=== PATIENT | female | born 1955 | race Caucasian/White ===

== ENCOUNTER 2018-06-10 08:57 | Day surgery (SDC) | payer BC ==
[2018-06-09 11:46] VITALS: BMI 22.6
[2018-06-10] MEDS ORDERED: CEFAZOLIN 1 GM in DEXTROSE 5%-WATER - 100 ML IVPB ONE (09:28)
[2018-06-10] MEDS ORDERED: VASOPRESSIN 20 UNITS/ML VIAL IV ONE (09:28)
[2018-06-10] MEDS ORDERED: PHENAZOPYRIDINE HCL 100 MG TABLET (FP) PO ONE (09:28)
[2018-06-10] MEDS ORDERED: CEFAZOLIN 1 GM/D5W 1 GM/50 ML BAG ONE (09:30)
[2018-06-10] MEDS ORDERED: SEVOFLURANE 250 ML BTL ONE (10:37)
[2018-06-10] MEDS ORDERED: DESFLURANE GAS 240 ML BOTTLE IH ONE (10:37)
[2018-06-10] MEDS ORDERED: PROPOFOL 20 ML ONE (10:43)
[2018-06-10] MEDS ORDERED: ceFAZolin SODIUM 1 GM VIAL IVPB ONE (11:04)
[2018-06-10] MEDS ORDERED: FLUORESCEIN SODIUM 10% 500 MG/5 ML VIAL IVPUSH ONE (11:15)
[2018-06-10] MEDS ORDERED: KETOROLAC TROMETHAMINE 30 MG/1 ML VIAL ONE (11:25)
[2018-06-10] MEDS ORDERED: DEXAMETHASONE SOD PHOSPHATE 4 MG/1 ML VIAL ONE (11:25)
[2018-06-10] MEDS ORDERED: LIDOCAINE HCL 1%, 10 MG/ML (20ML VIAL) ONE (11:45)
[2018-06-10] MEDS ORDERED: ALBUTEROL SO4 8 GM HFA INHALER IH ONE (12:08)
[2018-06-10] MEDS ORDERED: ONDANSETRON 4 MG/2 ML VIAL IVPUSH PRN (12:22)
[2018-06-10] MEDS ORDERED: oxyCODONE HCL 5 MG TABLET PO PRN (12:22)
[2018-06-10] MEDS ORDERED: PROMETHAZINE HCL 25 MG/1 ML VIAL IVPB PRN (12:22)
[2018-06-10] MEDS ORDERED: ACETAMINOPHEN 1000 MG/100 ML VIAL (NON FORMULARY) IVPB ONE (12:23)
--- NOTE | 2018-06-10 12:24 | OP ---
Operative Note - Note: Operative Date: 06/10/18 Pre-Operative Diagnosis: UTERINE PROLAPSE Operation: TRANSVAGINAL HYSTERECTOMY, BILATERAL SALPINGECTOMY, REPAIR OF ENTEROCELE Surgeon: Jung Gonzalez Scada Operator: Colleen Haywood Anesthesiologist/BED TEACHER: Filippo Miller Anesthesia: General Specimens Removed: UTERUS WITH CERVIX, BILATERAL SALPINGX Estimated Blood Loss (mls): 30 Drains, Volume Out (mls): 500 (BOTELLO) Fluid Volume Replaced (mls): 1,200 Operative Report Dictated: Yes
[2018-06-10] MEDS ORDERED: ONDANSETRON 4 MG/2 ML VIAL ONE ×2 (12:46→15:20)
--- NOTE | 2018-06-10 13:51 | OP ---
DATE OF OPERATION: DATE OF DICTATION: 06/10/2018 PREOPERATIVE DIAGNOSES: Complete uterine prolapse, moderate enterocele, vault prolapse. POSTOPERATIVE DIAGNOSES: Complete uterine prolapse, moderate enterocele, vault prolapse. PROCEDURE PERFORMED: Vaginal hysterectomy, bilateral salpingectomy, enterocele repair, and vaginal suspension to the prespinous fascia of the iliococcygeus muscle. PRIMARY SURGEON: Jung Gonzalez MD PROCEDURE: After adequate anesthesia patient was prepped and draped in dorsal lithotomy position. A dilute solution of pitressin was injected throughout the entire vaginal epithelium. Pelvic examination negative for foreign bodies. A circumferential incision was made around the cervix and anterior and posterior cul-de-sacs were entered without difficulty. The uterosacral/cardinal ligament complex followed by the uterine artery followed by the ovarian ligament clamped, cut, suture ligated. The uterus was removed. The tubes were easily removed without any difficulty, but the ovaries bilaterally were streaked, small and plastered up against the pelvic sidewall. Appeared normal but too high up to take out safely from below and therefore left behind. Enterocele sac was closed off at its neck using 0 Vicryl suture in circumferential stitch incorporating the uterosacral/cardinal ligament complex. The vaginal cuff was then closed using 2-0 Vicryl suture in continuous fashion. A [id number] stitch of 0 PDS was then placed through the vagina into the prespinous fascia of the ileococcygeus muscle back out through the vagina and tied. This was done bilaterally for support. Rectal examination negative for foreign bodies. The introitus was accommodating of the surgeon's 2 fingers easily with no stenosis noted. There was good posterior descent of the vagina back into the hollow of the sacrum. Cystoscopy was performed to note fluorescein dye and Pyridium which was given preoperatively emanating from both ureteral orifices rigorously. Patient tolerated procedure well. Transferred to recovery in stable condition. All instrument and sponge counts were given to us as correct. Jessica [id number]
[2018-06-10] MEDS ORDERED: IBUPROFEN 600 MG TABLET (FP) PO ONE ×2 (14:19→14:20)
[2018-06-10] MEDS ORDERED: ONDANSETRON 4 MG/2 ML VIAL IVPB ONE (15:20)
[2018-06-10] MEDS ORDERED: PROMETHAZINE HCL 25 MG/1 ML VIAL ONE (15:54)
[2018-06-10] MEDS ORDERED: PROMETHAZINE HCL 25 MG/1 ML VIAL IVPB ONE (16:00)
[2018-06-10] MEDS ORDERED: KETOROLAC TROMETHAMINE 30 MG/1 ML VIAL IVPUSH PRN ×2 (17:23→17:24)
[2018-06-10] MEDS ORDERED: traMADol HCL 50 MG TABLET PO PRN (17:29)
[2018-06-10] MEDS ORDERED: ACETAMINOPHEN 325 MG TABLET (FP) PO PRN (18:30)
[2018-06-11 08:43] VITALS: BP 106/58; PULSE 91; TEMP 98.6
--- NOTE | 2018-06-13 16:59 | PATH ---
Surgical Pathology Report Patient Name: TOREY JAQUEZ [facility]. Rec. #: [id number] /Age/Gender: 1955 (Age: 62) / F Account: [id number] Location: AMBULATORY SURG Taken: 06/10/2018 Received: 06/10/2018 Reported: 06/13/2018 Physicians: Jung Gonzalez M.D. Specimen(s) Received A: UTERUS AND CERVIX B: RIGHT FALLOPIAN TUBE C: LEFT FALLOPIAN TUBE Clinical History Prolapse Final Diagnosis A. UTERUS AND CERVIX, TRANSVAGINAL HYSTERECTOMY: 93 G UTERUS. INTRAMURAL LEIOMYOMA(TA). ATROPHIC ENDOMETRIUM. CERVIX WITH ENDOCERVICAL POLYP, SQUAMOUS METAPLASIA, AND FOCAL PARAKERATOSIS. B. FALLOPIAN TUBE, RIGHT, SALPINGECTOMY: FULL LUMINAL PORTION OF UNREMARKABLE FALLOPIAN TUBE. C. FALLOPIAN TUBE, LEFT, SALPINGECTOMY: UNREMARKABLE FALLOPIAN TUBE (INCLUDING FIMBRIATED END AND FULL LUMINAL PORTION). Electronically Signed Cornelia Diaz M.D. Gross Description A. Received in formalin labeled "uterus and cervix," is a 93 g uterus with an attached cervix and no attached adnexa. The specimen measures 10 cm from superior to inferior, 6 cm from left to right and 3.7 cm from anterior to posterior. The serosa is bell-pink and smooth. The attached cervix measures 4 cm in length and averages 2 cm in diameter. The endocervix is bell, smooth and glistening. The endocervix displays a 0.8 cm in greatest dimension cervical polyp. The endometrial cavity measures 4.5 cm in length and 2.8 cm from cornu to cornu. The endometrium is bell and averages 0.1 cm in thickness. The myometrium displays 2 intramural nodules measuring 1.6 and 1.8 cm in greatest dimension. The cut surface of the nodules is bell and rubbery with whorled architecture. No areas of hemorrhage or necrosis are identified. The remaining myometrium is bell-pink and measures up to 2.3 cm in thickness. [employer] Ray Technologist sections are submitted in 6 cassettes as follows: 1-anterior cervix with polyp; 2-posterior cervix; 3-anterior endomyometrium; 4-anterior endomyometrium with intramural nodule; 5-posterior endomyometrium with second intramural nodule; 6-additional posterior endomyometrium. B. Received in formalin labeled "right fallopian tube," is a 3 cm in length portion of fallopian tube. No fimbria are present. The outer surface is bell-pink and smooth. Sectioning reveals an unremarkable lumen. [employer] Technologist sections are submitted in one cassette. C. Received in formalin labeled "left fallopian tube," is a 3.5 cm in length fimbriated fallopian tube. The outer surface is bell-pink and smooth. Sectioning reveals an unremarkable lumen. X Ray Technologist sections are submitted in 2 cassettes as follows: 1-fimbria; 2-cross sections of fallopian tube. 06/10/2018 [facility]06/10/2018
== END 2018-06-11 10:00 | disposition home or self-care (01) ==
LOC: JASUSAT 08:57 → J3W 16:52 → JASUSAT 06-11 10:00
PROVIDERS: ATTEND Obstetrics & Gynecology Female Pelvic Medicine and Reconstructive Surgery
PROC: 0USG7ZZ Reposition Vagina, Via Natural or Artificial Opening (ICD-10-PCS; 2018-06-10)
PROC: 0UT97ZZ Resection of Uterus, Via Natural or Artificial Opening (ICD-10-PCS; principal; 2018-06-10 10:30)
PROC: 0UT77ZZ Resection of Bilateral Fallopian Tubes, Via Natural or Artificial Opening (ICD-10-PCS; 2018-06-10 10:30)
DX: N81.3 Complete uterovaginal prolapse (principal)
CPT/HCPCS: 86850; 86900; 86901; 88302-TC; 88307-TC; 94760; J0131